=== PATIENT | male | born 1980 | race Caucasian/White ===

== ENCOUNTER 2022-11-07 10:21 | Emergency (ER) | payer SELFPAY ==
--- NOTE | 2022-11-07 10:28 | ED_ITS ---
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 Does not recall any specific event however subsequently thought that maybe he had Welders burn . He has had this before however this is lasted for more days. Moderate intensity symptoms. Persistent course. Mild foreign body sensation. No other specific changes in health, exacerbating, or alleviating factors identified. Review of Systems General: Reports: 10 or more systems reviewed and unremarkable except in HPI and below PFSH ED PFSH: Medical History (Updated 11/20/22 @ 11:18 by Riky Field MD) No significant past medical history Surgical History (Updated 11/20/22 @ 11:18 by Riky Field MD) No significant past surgical history Physical Exam Const: COMMON NORMALS: alert GENERAL APPEARANCE: cooperative and well developed HENMT: COMMON NORMALS: normocephalic and atraumatic HEAD & SCALP: normocephalic and atraumatic THROAT: posterior oropharynx normal Eye: OTHER: See MDM Neck/C-Spine: COMMON NORMALS: supple GENERAL: Yes trachea midline Resp: COMMON NORMALS: normal respiratory effort EFFORT & INSPECTION: Yes able to speak in complete sentences Cardio: COMMON NORMALS: regular rate and regular rhythm RATE: regular rate RHYTHM: regular rhythm GI: COMMON NORMALS: Soft to palpation PALPATION: Yes Soft to palpation and No Tenderness to palpation present (GI) Extremity: GENERAL: Yes normal exam except as noted and No edema Neuro: COMMON NORMALS: moves all extremities SENSORIUM/ORIENTATION: Yes alert and No Orientation impaired Psych: COMMON NORMALS: mental status grossly normal and Normal thought process present THOUGHT PROCESS: Normal thought process present Course Vital Signs: Vital signs: Vital Signs Pulse Rate 71 11/07/22 10:29 Respiratory Rate 14 11/07/22 10:29 Blood Pressure 174/99 11/07/22 10:29 Pulse Oximetry 98 11/07/22 10:29 Oxygen Delivery Me thod Room Air 11/07/22 10:29 MDM - Eye Problem Medical Decision Making 42-year-old gentleman presenting with left eye conjunctival injection and pain with blurry vision. No evidence of ocular entrapment or orbital cellulitis. PERRLA. Fluorescein and tetracaine exam performed with likely corneal abrasion. No evidence of globe rupture. No foreign body identified. [id number] ocular ultrasound without abnormality identified. Plan to treat for corneal abrasion/conjunctivitis. The results of ED evaluation were discussed with the patient including prescriptions and/or symptomatic cares (if applicable) including appropriate and responsible use, followup plan, and return precautions. The patient verbalized understanding and felt safe for discharge. Medical Records I reviewed the patient's medical records. Lab Data I reviewed the patient's lab results. Discharge Plan Discharge Patient Disposition: Home Clinical Impression: Corneal abrasion, Conjunctivitis Condition: Stable Prescriptions: New moxifloxacin 0.5 % drops See Rx Instructions .ROUTE .COMPLEX Qty: 3 0RF Rx Instructions: 2 drops every 2 hours for 2 days THEN q6hrs for 5 days oxycodone 5 mg tablet 5 mg PO Q4H PRN (Reason: pain) Qty: 10 0RF Discharge Orders: Discharge ED (Routine); Ordered 11/07/22 Ordered By: Riky Field Discharge Diet: Usual diet Discharge Activity: Resume usual activity Patient Instructions: Corneal Abrasion (ED), Conjunctivitis (ED), Opioid Safety Activity Restrictions/Additional Instructions: Thank you for visiting the emergency department. You were seen evaluate for eye pain. The most likely cause of your pain is related to abrasion and infection. This will be treated with eyedrops. Please follow-up with a clinical education assistant. One option in town is [facility] which is located at [address] in [place]. Phone number is [phone]. Return for uncontrolled symptoms, any new neurologic symptoms, or anything else that you are concerned about and feel needs emergency department evaluation. Coding Level of Care Code ED Broadcast Maintenance Engineer for Neptali Pascual
[2022-11-07 10:29] VITALS: BP 174/99; PULSE 71; RESP 14; O2SAT 98; BMI 39.0
[2022-11-07] MEDS: fluorescein 1 mg Strip EYE-BOTH (10:38)
[2022-11-07] MEDS: tetracaine 0.5% Op Soln 4 mL Btl 1 DROP EYE-BOTH (10:38)
== END 2022-11-07 11:30 | disposition home or self-care (01) ==
PROVIDERS: Emergency Provider Emergency Medicine; PCP Family Medicine
DX: S05.02XA Injury of conjunctiva and corneal abrasion without foreign body, left eye, initial encounter (principal); X58.XXXA Exposure to other specified factors, initial encounter; H10.9 Unspecified conjunctivitis
CPT/HCPCS: 99283